=== PATIENT | female | born 1980 | race Caucasian/White ===

== ENCOUNTER → 2018-09-02 | Outpatient (CLI) | payer OTHER ==
--- NOTE | 2018-09-02 11:21 | MM ---
Reason for exam: screening (asymptomatic). Baseline mammogram. Physical Findings: Nurse did not find any significant physical abnormalities on exam. MG Screening Mammo w CAD Bilateral CC and MLO view(s) were taken. The breast tissue is heterogeneously dense. This may lower the sensitivity of mammography. There is a right 5mm mass at 9 o'clock 8.5-9.5cm from nipple that's round and well circumscribed. Ultrasound will be performed. No suspicious abnormality on the left. These results were verbally communicated with the patient and result sheet given to the patient on 09/02/18. ASSESSMENT: Incomplete: need additional imaging evaluation, BI-RAD 0 RECOMMENDATION: Ultrasound of the right breast.
--- NOTE | 2018-09-02 11:26 | USB ---
Reason for exam: additional evaluation requested from abnormal screening. Physical Findings: Breast exam preformed at baseline screening. US Breast Workup Limited RT Right limited breast ultrasound including focal area of concern, retroareolar and axilla demonstrates a 0.5 x 0.3 x 0.3cm oval, cystic cluster at 9 o'clock possible mammographic correlate, a 0.4 x 0.3 x 0.2cm oval, cystic complex lesion at 11 o'clock probable complicated cyst, a 0.5 x 0.6 x 0.4cm oval, solid, hyperechoic lesion at 11 o'clock likely lipoma, a 0.5 x 0.3 x 0.3cm oval, irregular, cystic lesion at 12 o'clock possible deep cyst and a 1.6 x 2.0 x 1.2cm larger oval axillary nodes. These results were verbally communicated with the patient and result sheet given to the patient on 09/02/18. ASSESSMENT: Probably benign, BI-RAD 3 RECOMMENDATION: Follow-up diagnostic mammogram and ultrasound of the right breast in 6 months.
== END | disposition home or self-care (01) ==
LOC: RADMAMWWP 09:28
PROVIDERS: ATTEND Obstetrics & Gynecology
DX: Z12.31 Encounter for screening mammogram for malignant neoplasm of breast (principal); R92.8 Other abnormal and inconclusive findings on diagnostic imaging of breast
CPT/HCPCS: 77067

== ENCOUNTER → 2020-12-28 | Outpatient (CLI) | payer BC ==
[2020-12-28 11:26] LABS: Basophils % (A) 1 %; Eosinophils # (A) 0.1 k/uL (0-0.7); Eosinophils % (A) 2 %; HCT 40.6 % (34.0-46.0); HGB 14.2 gm/dL (11.4-16.0); Lymphocytes # (A) 1.5 k/uL (1.0-4.8); Lymphocytes % (A) 23 %; MCH 32.3 pg (25.0-35.0); MCV 92.1 fL (80.0-100.0); Mean Platelet Volume 6.7; Monocytes # (A) 0.3 k/uL (0-1.0); Monocytes % (A) 5 %; Neutrophils # (A) 4.4 k/uL (1.3-7.7); Neutrophils % (A) 68 %; Platelet Count 331 k/uL (150-450); RBC 4.41 m/uL (3.80-5.40); RDW 12.6 % (11.5-15.5); WBC 6.5 k/uL (3.8-10.6)
== END | disposition home or self-care (01) ==
LOC: LABPAT 10:31
PROVIDERS: ATTEND Obstetrics & Gynecology
DX: Z01.812 Encounter for preprocedural laboratory examination (principal); N92.0 Excessive and frequent menstruation with regular cycle
CPT/HCPCS: 85025

== ENCOUNTER 2021-02-06 08:53 | Day surgery (SDC) | payer BC ==
[2021-02-03 08:49] VITALS: BMI 36.9
[~2021-02-06 08:53] MED LIST: DEXAMETHASONE SOD PHOSPHATE 4 MG/ML 1 ML VIAL IV ONE; HYDROmorphone 0.5 MG/0.5 ML SYRINGE IVP PRN; LACTATED RINGERS 1,000 ML IV SCH; LIDOCAINE 1% (10MG/ML) FOR IV START INTRADERMA PRN; MIDAZOLAM 2 MG/2 ML VIAL IV PRN; ONDANSETRON 4 MG/2 ML VIAL IVP ONE; Pre Op ABX Message 1 EACH MISC MISCELLANE ONE
--- NOTE | 2021-02-06 10:55 | P.HPOB ---
History of Present Illness H&P Date: 02/06/21 Chief Complaint: Menorrhagia The patient is a 40-year-old 3 para 3003 admitted to the hospital for outpatient surgery with a complaint of significant menorrhagia. Her cycles are regular but are significantly heavy with clots. She did fail Lysteda and is aware of other potential hormonal options. As her has a vasectomy in place, she has declined hormonal intervention favor of proceeding with endometrial ablation. Attempted endometrial biopsy in the office failed secondary to cervical stenosis. Obstetrical history: 3 para 3003 with 3 term vaginal deliveries without complications. Method of contraception is vasectomy. Gynecologic history: Unremarkable with no history of any infections to include STDs. Review of Systems Review of systems is confined to history of present illness. Past Medical History Past Medical History: No Reported History Additional Past Medical History / Comment(s): HEAVY PAINFUL MENSES History of Any Multi-Drug Resistant Organisms: None Reported Past Surgical History: Tonsillectomy Past Anesthesia/Blood Transfusion Reactions: No Reported Reaction Smoking Status: Current every day smoker - Past Family History Mother Family Medical History: No Reported History Medications and Allergies Home Medications Medication Instructions Recorded Confirmed Type Levothyroxine Sodium [Synthroid] 175 mcg PO DAILY 02/03/21 02/06/21 History Venlafaxine HCl [Effexor XR] 150 mg PO DAILY 02/03/21 02/06/21 History Allergies Allergy/AdvReac Type Severity Reaction Status Date / Time Sulfa (Sulfonamide Allergy Rash/Hives Verified 02/06/21 09:30 Antibiotics) Exam Vital Signs Temp Pulse Resp BP Pulse Ox 02/06/21 09:29 97.6 F 83 16 144/82 96 Intake and Output 02/05/21 02/06/21 02/06/21 22:59 06:59 14:59 Other: Weight 117 kg In general, this is a well-developed, well-nourished white female in no acute distress. Her heart has a regular rhythm and rate without murmur. Her lungs clear to auscultation bilaterally in all malik. Her abdomen is nondistended, has normal active bowel sounds, soft, nontender, and without any palpable masses aside from uterine fundus. Her extremities are without any cyanosis, clubbing, or edema and are nontender to palpation bilaterally. Pelvic examination demonstrates normal external genitalia and BUS with normal vaginal mucosa and cervix. There is no cervical motion tenderness. Uterus approximate 5 weeks in size, midplane, mobile, nontender, normal in shape. The adnexa are normal and nontender without mass bilaterally. Assessment and Plan (1) Menorrhagia Current Visit: Yes Status: Acute Code(s): N92.0 - EXCESSIVE AND FREQUENT MENSTRUATION WITH REGULAR CYCLE SNOMED Code(s): 836076113 Plan: Multiple options were discussed the patient and she has chosen to proceed with endometrial ablation. We had initially discussed NovaSure endometrial ablation but have now agreed to proceed with Pricilla endometrial ablation. The risks and, occasions the procedure been thoroughly discussed including the risk for bleeding, bleeding requiring transfusion, infection, and injury to local structures to specifically include uterine perforation, Asherman syndrome, and potential heme endometrial. She has understood all of these concerns and has agreed to proceed.
[2021-02-06] MEDS ORDERED: SUCCINYLCHOLINE CHLORIDE 100 MG/5 ML SYR IV ONE (11:11)
[2021-02-06] MEDS ORDERED: PROPOFOL 10 MG/ML 20 ML VIAL IV ONE (11:11)
[2021-02-06] MEDS ORDERED: MIDAZOLAM 2 MG/2 ML VIAL ONE (11:11)
[2021-02-06] MEDS ORDERED: LIDOCAINE 1% INJ 10MG/ML (20 ML MDV) ONE (11:11)
[2021-02-06] MEDS ORDERED: .fentaNYL (PF) 50 MCG/ML 2 ML AMP ONE (11:11)
[2021-02-06 11:56] VITALS: TEMP 97
--- NOTE | 2021-02-06 11:56 | P.OP ---
Date of Procedure: 02/06/21 Preoperative Diagnosis: #1. Menorrhagia Postoperative Diagnosis: Same Procedure(s) Performed: #1. Diagnostic hysteroscopy #2. Dilation and curettage #3. Pricilla endometrial ablation Anesthesia: ESTELLA Surgeon: Dino Johnston Estimated Blood Loss (ml): 2 IV fluids (ml): 400 Urine output (ml): 100 Pathology: other (Endometrial curettings) Condition: stable Disposition: PACU Operative Findings: Preoperative pelvic examination demonstrated a roughly 5 week midplane mobile normal shaped uterus with normal adnexa bilaterally. Intraoperatively, the uterus was sounded to approximately 9 cm with a cervical length of approximately 4 cm. Using the hysteroscope, there was a small to moderate amount of shaggy endometrial tissue in the cavity but nothing that appeared pathologic. The bilateral tubal ostia were seen. Following the procedure, the hysteroscopic result appeared excellent. The patient is a poor candidate for vaginal hysterectomy should it become necessary. Description of Procedure: The patient was prepped and draped in usual fashion after general endotracheal anesthesia was administered by the anesthesiologist. A weighted speculum was placed and the bladder drained of approximately 100 mL of clear vicki urine. The anterior lip of the cervix was grasped with a single-tooth tenaculum and uterus sounded to approximately 9 cm with a cervical length of approximate 4 cm which was later confirmed using the Hegar dilator. Serial dilation was carried out to admit the diagnostic hysteroscope. It was placed into the endometrial cavity and distended with normal saline. The bilateral tubal ostia were seen. There was a small to moderate amount of shaggy in usual tissue and that portion of the cavity but nothing that appeared pathologic. After adequate hysteroscopy, the scope was set aside and a small curet introduced into the cavity. Thorough and circumferential sharp curettage was carried out onto a Telfa placed in the vagina. Minimal amount of tissue was returned. The Pricilla tool was then set for a length of 5 cm and placed within the endometrial cavity, opened, and seated well. The cervical occlusion balloon was filled and the settings were noted to be in the normal range. The tool was started in both cavity checks passed without difficulty. The total ablation time of the standard to minutes was carried out after which time the procedure was complete. The tool was closed, removed, and discarded the diagnostic hysteroscope was replaced into the endometrial cavity nor result appeared to be excellent. Estimated blood loss for the case is approximately 2 mL or less. There were no complications. All sponge, instrument, needle counts were correct. The patient tolerated the procedure well and proceeded to the recovery room in stable condition.
[2021-02-06 12:10] VITALS: RESP 18
[2021-02-06 12:50] VITALS: BP 136/76; PULSE 80
== END 2021-02-06 12:55 | disposition home or self-care (01) ==
LOC: OR 08:53
PROVIDERS: ATTEND Obstetrics & Gynecology
DX: N92.0 Excessive and frequent menstruation with regular cycle (principal); F17.210 Nicotine dependence, cigarettes, uncomplicated; F32.9 Major depressive disorder, single episode, unspecified; E07.9 Disorder of thyroid, unspecified; Z88.2 Allergy status to sulfonamides; Z79.899 Other long term (current) drug therapy
CPT/HCPCS: 81025; 88305; 58563; J2250; J1100; J2405; J2001; J3010; J0330; J2704

== ENCOUNTER → 2021-02-09 | Outpatient (CLI) | payer BC ==
--- NOTE | 2021-02-10 13:49 | MM ---
Reason for exam: screening (asymptomatic). Last mammogram was performed 2 years and 5 months ago. Physical Findings: A clinical breast exam by your physician is recommended on an annual basis and results should be correlated with mammographic findings. MG Screening Mammo w CAD Bilateral CC and MLO view(s) were taken. Prior study comparison: September 02, 2018, bilateral MG screening mammo w CAD. The breast tissue is heterogeneously dense. This may lower the sensitivity of mammography. There is chronic nodularity in the right breast. There is no discrete abnormality. ASSESSMENT: Negative, BI-RAD 1 RECOMMENDATION: Routine screening mammogram of both breasts in 1 year.
== END | disposition home or self-care (01) ==
LOC: RADMAMWWP 15:13
PROVIDERS: ATTEND Obstetrics & Gynecology
DX: Z12.31 Encounter for screening mammogram for malignant neoplasm of breast (principal)
CPT/HCPCS: 77067

== ENCOUNTER → 2024-07-17 | Outpatient (CLI) | payer BC ==
--- NOTE | 2024-07-17 08:16 | MM ---
Reason for Exam: Screening (asymptomatic). Last mammogram was performed 3 year(s) and 5 month(s) ago. Patient History: Menarche at age 15. First Full-Term at age 26. Last menstrual period: 07/11/2024 Risk Values: Qi 5 year model risk: 0.6%. NCI Lifetime model risk: 8.9%. Prior Study Comparison: 09/02/2018 Bilateral Screening Mammogram, [facility]. 02/09/2021 Bilateral Screening Mammogram, [facility]. Tissue Density: The breasts are heterogeneously dense, which may obscure small masses. Findings: Analyzed By CAD. Right breast: There is no suspicious group of microcalcifications or new suspicious mass. Left breast: There is no suspicious group of microcalcifications or new suspicious mass. Overall Assessment: Negative, BI-RAD 1 Management: Screening Mammogram of both breasts in [address] [facility] will attempt to contact patient to return for supplemental views and ultrasound if indicated. Patient should continue monthly self-breast exams. A clinical breast exam by your physician is recommended on an annual basis. This exam should not preclude additional follow-up of suspicious palpable abnormalities. Note on Qi scores and lifetime risk: 1. A Qi score greater than 3% is considered moderate risk. If this is the case, consider specialist referral to assess eligibility for a risk reducing agent. 2. If overall lifetime risk for the development of breast cancer is 20% or higher, the patient may qualify for future screening with alternating mammogram and breast MRI. [facility], , 07/17/2024 8:13 AM. Electronically signed and approved by: Brendan Brizuela DO
== END | disposition home or self-care (01) ==
LOC: RADMAMWWP 07:51
PROVIDERS: ATTEND Obstetrics & Gynecology
DX: Z12.31 Encounter for screening mammogram for malignant neoplasm of breast (principal); R92.333 Mammographic heterogeneous density, bilateral breasts
CPT/HCPCS: 77067